=== PATIENT | male | born 1985 | race Caucasian/White ===

== ENCOUNTER 2020-07-15 19:43 | Inpatient (IN) | payer SELFPAY ==
[2020-07-15] MEDS ORDERED: HYDROcodone/Acetaminophen 7.5/325 mg Tablet PO PRN (22:23)
[2020-07-15] MEDS ORDERED: Acetaminophen 325 MG TAB PO PRN (22:23)
[2020-07-15] MEDS ORDERED: Promethazine HCl 25 MG/ML VIAL IM/IV PRN (22:31)
[2020-07-15 22:58] VITALS: BMI 35.8
[2020-07-15] MEDS ORDERED: Pantoprazole 40 MG VIAL IVP SCH (23:00)
[2020-07-15] MEDS: Sodium Chloride 0.9% 1,000 ML IV SCH (23:28)
[2020-07-15] MEDS: Morphine 4 MG/ML VIAL SLOW IVP PRN (23:29)
[2020-07-16] MEDS: Ketorolac Tromethamine 30 MG/ML VIAL IVP PRN ×3 (00:23→16:04)
[2020-07-16] MEDS: Sodium Chloride 0.9% 1,000 ML IV SCH ×4 (02:32→18:25)
[2020-07-16] MEDS: Piperacillin/Tazobactam 4.5 GM in Sodium Chloride 0.9% 100 ML IVPB SCH ×2 (02:32→09:28)
[2020-07-16] MEDS: Morphine 4 MG/ML VIAL SLOW IVP PRN ×4 (03:17→21:20)
[2020-07-16] MEDS ORDERED: Labetalol HCl 100 MG/20 ML VIAL SLOW IVP SCH (04:00)
[2020-07-16] MEDS ORDERED: Fentanyl 100 MCG/2 ML VIAL SLOW IVP SCH (04:00)
[2020-07-16 04:10] LABS: SARS-CoV-2 PCR by NAA Not Detected (NotDetected)
[2020-07-16] MEDS: Ondansetron PF 4 MG/2 ML Vial IVP PRN ×3 (04:29→21:20)
[2020-07-16 04:34] LABS: #Lymphocytes 1.5 thou/uL (1.20-3.40); #Monocytes 0.9 thou/uL (0.11-0.59); %Eosinophils 0.1 % (0.0-10.0); %Lymphocytes 8.1 % (21.0-51.0); %Neutrophils 86.8 % (42.0-75.0); Mean Corpuscular Hemoglobin 29.4 pg (27.0-31.0); Mean Platelet Volume 6.2 fL (7.4-10.4); Platelet Count 382 thou/uL (130-400); RBC Distribution Width 15.4 % (11.5-14.5); Red Blood Cell (RBC) Count 4.75 mill/uL (4.70-6.10); White Blood Cell (WBC) Count 18.5 thou/uL (4.8-10.8)
[2020-07-16 04:49] LABS: Anion Gap 17 mmol/L (10-20); BUN (Urea Nitrogen) 7 mg/dL (8.9-20.6); Calc. Creatinine Clearance 148 mL/min (70-130); Carbon Dioxide 20 mmol/L (22-29); Chloride 104 mmol/L (98-107); Glucose 174 mg/dL (70-105); Potassium 3.8 mmol/L (3.5-5.1); Sodium 137 mmol/L (136-145)
[2020-07-16] MEDS ORDERED: Piperacillin/Tazobactam 4.5 GM in Sodium Chloride 0.9% 100 ML IVPB SCH (06:00)
[2020-07-16 06:12] LABS: Lactic Acid 3.5 mmol/L (0.5-2.2)
[2020-07-16 06:18] LABS: ALT (SGPT) 47 U/L (8-55); AST (SGOT) 27 U/L (5-34); Albumin 3.6 g/dL (3.5-5.0); Alkaline Phosphatase 82 U/L (40-110); Bilirubin, Direct 0.2 mg/dL (0.1-0.3); Bilirubin, Total 0.6 mg/dL (0.2-1.2); Protein, Total 6.4 g/dL (6.0-8.3)
[2020-07-16] MEDS: Pantoprazole 40 MG VIAL IVP SCH (07:47)
[2020-07-16] MEDS: Ondansetron ODT 4 MG TAB PO PRN (07:47)
[2020-07-16] MEDS ORDERED: Enoxaparin Sodium 40 MG/0.4 ML SYRINGE SC SCH (09:00)
[2020-07-16] MEDS ORDERED: Amlodipine 5 MG TAB PO SCH (11:45)
[2020-07-16] MEDS: busPIRone HCl 10 MG TAB PO SCH (21:21)
[2020-07-16] MEDS ORDERED: ALPRAZolam 0.25 MG TAB PO SCH (23:30)
[2020-07-16] MEDS ORDERED: Sodium Chloride 0.9% 1,000 ML IV SCH (23:53)
[2020-07-17] MEDS: Promethazine HCl 25 MG in Sodium Chloride 0.9% 50 ML IVPB PRN ×2 (01:19→10:59)
[2020-07-17] MEDS: Ketorolac Tromethamine 30 MG/ML VIAL IVP PRN ×2 (01:19→21:50)
[2020-07-17] MEDS: Sodium Chloride 0.9% 1,000 ML IV SCH (01:47)
[2020-07-17 04:46] LABS: #Eosinphils 0.1 thou/uL (0.0-0.7); #Lymphocytes 1.2 thou/uL (1.20-3.40); #Monocytes 0.9 thou/uL (0.11-0.59); #Neutrophils 13.3 thou/uL (1.40-6.50); %Basophils 0.1 % (0.0-1.0); %Eosinophils 0.3 % (0.0-10.0); %Lymphocytes 7.5 % (21.0-51.0); %Neutrophils 86.1 % (42.0-75.0); Mean Corpuscular HGB CONC 34.1 g/dL (32.0-36.0); Mean Corpuscular Hemoglobin 30.5 pg (27.0-31.0); Mean Corpuscular Volume 89.3 fL (78.0-98.0); Mean Platelet Volume 6.4 fL (7.4-10.4); Platelet Count 270 thou/uL (130-400); RBC Distribution Width 15.4 % (11.5-14.5); Red Blood Cell (RBC) Count 4.26 mill/uL (4.70-6.10); White Blood Cell (WBC) Count 15.5 thou/uL (4.8-10.8)
[2020-07-17 05:10] LABS: Anion Gap 13 mmol/L (10-20); BUN (Urea Nitrogen) 5 mg/dL (8.9-20.6); Calc. Creatinine Clearance 177 mL/min (70-130); Calcium 7.2 mg/dL (7.8-10.44); Carbon Dioxide 19 mmol/L (22-29); Chloride 104 mmol/L (98-107); Glucose 127 mg/dL (70-105); Potassium 3.3 mmol/L (3.5-5.1); Sodium 133 mmol/L (136-145)
[2020-07-17] MEDS: Morphine 4 MG/ML VIAL SLOW IVP PRN ×3 (06:06→18:34)
[2020-07-17] MEDS: Ondansetron PF 4 MG/2 ML Vial IVP PRN ×2 (06:24→16:07)
[2020-07-17] MEDS ORDERED: Magnesium 2 GM/50 ML 2 GM in Premix Bag 1 BAG IVPB SCH (08:00)
[2020-07-17] MEDS: Potassium Chloride 30 MEQ in Sodium Chloride 0.9% 1,000 ML IV SCH ×3 (08:12→19:21)
[2020-07-17] MEDS ORDERED: LITHIUM CARBONATE 600 MG PO SCH (09:00)
[2020-07-17 09:05] LABS: HBCM Index 0.18 S/CO (0-0.79); HBSAg Index 0.28 S/CO (0-0.99); Hep A IgM AB Non-Reactive (NonReactive); Hep A IgM S/CO 0.19 S/CO (0-0.79); Hep B Surf Ag Non-Reactive S/CO (NonReactive); Hep C IgG Ab Non-Reactive (NonReactive); Hep C Index 0.32 S/CO (0-0.79); Hepatitis B Core IgM Abs Non-Reactive (NonReactive)
[2020-07-17] MEDS: Cyanocobalamin (Vitamin B-12) 1,000 MCG TAB PO SCH (09:43)
[2020-07-17] MEDS: Amitriptyline HCl 25 MG TAB PO SCH (09:43)
[2020-07-17] MEDS: Thiamine 100 MG TAB PO SCH (09:43)
[2020-07-17] MEDS: Pantoprazole 40 MG VIAL IVP SCH (09:45)
[2020-07-17] MEDS: Amlodipine 5 MG TAB PO SCH (10:31)
[2020-07-17] MEDS: busPIRone HCl 10 MG TAB PO SCH ×2 (10:32→20:34)
[2020-07-17] MEDS: Nicotine 7 MG PATCH TD SCH (17:42)
[2020-07-18] MEDS: Promethazine HCl 25 MG in Sodium Chloride 0.9% 50 ML IVPB PRN (01:12)
[2020-07-18] MEDS: Morphine 4 MG/ML VIAL SLOW IVP PRN ×2 (01:30→09:03)
[2020-07-18 04:41] LABS: #Eosinphils 0.2 thou/uL (0.0-0.7); #Lymphocytes 1.9 thou/uL (1.20-3.40); #Neutrophils 8.7 thou/uL (1.40-6.50); %Basophils 0.1 % (0.0-1.0); %Eosinophils 1.7 % (0.0-10.0); %Lymphocytes 16.3 % (21.0-51.0); %Monocytes 8.6 % (0.0-10.0); %Neutrophils 73.4 % (42.0-75.0); Hemoglobin 12.7 g/dL (14.0-18.0); Mean Corpuscular HGB CONC 34.6 g/dL (32.0-36.0); Mean Corpuscular Volume 89.5 fL (78.0-98.0); Mean Platelet Volume 6.5 fL (7.4-10.4); Platelet Count 250 thou/uL (130-400); RBC Distribution Width 15.4 % (11.5-14.5); Red Blood Cell (RBC) Count 4.09 mill/uL (4.70-6.10); White Blood Cell (WBC) Count 11.9 thou/uL (4.8-10.8)
[2020-07-18 05:03] LABS: Anion Gap 10 mmol/L (10-20); BUN (Urea Nitrogen) 4 mg/dL (8.9-20.6); Calc. Creatinine Clearance 203 mL/min (70-130); Calcium 7.5 mg/dL (7.8-10.44); Carbon Dioxide 25 mmol/L (22-29); Chloride 104 mmol/L (98-107); Glucose 92 mg/dL (70-105); Potassium 3.1 mmol/L (3.5-5.1); Sodium 136 mmol/L (136-145)
[2020-07-18] MEDS: Potassium Chloride 30 MEQ in Sodium Chloride 0.9% 1,000 ML IV SCH ×2 (05:29→15:19)
[2020-07-18] MEDS: Ketorolac Tromethamine 30 MG/ML VIAL IVP PRN ×2 (05:31→15:58)
[2020-07-18] MEDS ORDERED: Potassium Chloride 20 MEQ TAB PO SCH (08:15)
[2020-07-18] MEDS ORDERED: Magnesium Sulfate 3 GM in Sodium Chloride 0.9% 100 ML IVPB SCH (08:15)
[2020-07-18] MEDS ORDERED: Fenofibrate Nanocrystallized 145 MG TAB PO SCH (09:00)
[2020-07-18] MEDS: busPIRone HCl 10 MG TAB PO SCH (09:01)
[2020-07-18] MEDS: Cyanocobalamin (Vitamin B-12) 1,000 MCG TAB PO SCH (09:02)
[2020-07-18] MEDS: Amitriptyline HCl 25 MG TAB PO SCH (09:02)
[2020-07-18] MEDS: Thiamine 100 MG TAB PO SCH (09:02)
[2020-07-18] MEDS: Pantoprazole 40 MG VIAL IVP SCH (09:02)
[2020-07-18] MEDS: Ondansetron PF 4 MG/2 ML Vial IVP PRN (09:02)
[2020-07-18] MEDS: Amlodipine 5 MG TAB PO SCH (09:25)
[2020-07-18] MEDS: Nicotine 7 MG PATCH TD SCH (16:03)
[2020-07-18] MEDS: Ondansetron ODT 4 MG TAB PO PRN (16:03)
[2020-07-18 16:53] VITALS: BP 148/87; TEMP 99.3
== END 2020-07-18 20:48 | disposition home or self-care (01) | DRG 439 ==
LOC: 2NO 19:43
PROVIDERS: ADMIT Student in an Organized Health Care Education/Training Program; ATTEND Hospitalist
DX: K85.20 Alcohol induced acute pancreatitis without necrosis or infection (principal); N17.9 Acute kidney failure, unspecified; E87.2 Acidosis; F31.9 Bipolar disorder, unspecified; E78.1 Pure hyperglyceridemia; I10 Essential (primary) hypertension; R00.0 Tachycardia, unspecified; F10.10 Alcohol abuse, uncomplicated; E87.6 Hypokalemia; E83.42 Hypomagnesemia; F17.210 Nicotine dependence, cigarettes, uncomplicated
CPT/HCPCS: 36415; 76705; 80048; 80074; 80076; 82787; 83605; 83735; 84478; 85025; 87635; C9113; J1885; J2270; J2405; J2543; J2550; J3010; J3475; J3480; J3490; J7050; Q0162; U0003; U0005